=== PATIENT | male | born 1985 | race Caucasian/White ===

== ENCOUNTER 2017-11-03 12:02 | Observation (INO) | payer OTHER ==
[~2017-11-03] VITALS: Ht 170.2 cm; Wt 97.5 kg
[~2017-11-03 12:02] MED LIST: ACET325; AMOX500 PO; BACPOLTO30 TOP; BENADRYL25 MG PO; BENZ.5 PO; BENZ1 PO; BUTASPCAF PO; IBUP600 PO; IBUP800 PO; NAPR220; NAPR550 PO; OLAN5; OMEP20ER PO; PALI3TAB IM; PALI6TA; PROP60 PO; Pepcid20 MG PO; Prilosec20 MG PO; RISP1 PO; Robaxin500 MG PO; SLEEPING PILL; Tylenol325 MG PO; Ultram50 MG PO; Zofran Odt4 MG SL
[2017-11-03] MEDS ORDERED: GABA300 PO (13:36)
[2017-11-03] MEDS ORDERED: ACET325 PO (13:36)
[2017-11-03] MEDS ORDERED: Nicotine Gum2 MG BC (13:37)
[2017-11-03] MEDS ORDERED: Senna8.6 MG PO (13:38)
[2017-11-03] MEDS ORDERED: Hair, Skin & N1 EACH PO (13:38)
[2017-11-05] MEDS ORDERED: OXYC5 PO (12:36)
[2017-11-05] MEDS ORDERED: KETO10 PO (12:37)
== END 2017-11-05 13:14 | disposition home or self-care (01) ==
LOC: PRE IP 11-04 07:30 → SURS 11-04 07:31 → PRE IP 11-04 10:25 → SURS 11-04 10:25
PROVIDERS: Orthopaedic Surgery
PROC: 0RQK0ZZ Repair Left Shoulder Joint, Open Approach (ICD-10-PCS; principal; 2017-11-04 12:30)
DX: M25.812 Other specified joint disorders, left shoulder (principal); F17.200 Nicotine dependence, unspecified, uncomplicated; Z79.899 Other long term (current) drug therapy
CPT/HCPCS: C1713; G0008; G0378; J0171; J0690; J0735; J1100; J1170; J1885; J2250; J2270; J2370; J2405; J2710; J2765; J2795; J3010; J7120

== ENCOUNTER 2018-04-10 20:00 | Emergency (ER) | payer OTHER ==
[~2018-04-10] VITALS: Ht 170.2 cm; Wt 102.1 kg
[~2018-04-10 20:00] MED LIST changes: +ACET325 PO; +GABA300 PO; +Hair, Skin & N1 EACH PO; +KETO10 PO; +Nicotine Gum2 MG BC; +OXYC5 PO; +Senna8.6 MG PO
[2018-04-10] MEDS ORDERED: HYDHCL25 PO (22:34)
== END 2018-04-10 22:45 | disposition home or self-care (01) ==
LOC: ER 20:00
DX: S16.1XXA Strain of muscle, fascia and tendon at neck level, initial encounter (principal); F41.0 Panic disorder [episodic paroxysmal anxiety]; F20.9 Schizophrenia, unspecified; F17.200 Nicotine dependence, unspecified, uncomplicated; Z79.899 Other long term (current) drug therapy; X58.XXXA Exposure to other specified factors, initial encounter
CPT/HCPCS: 99283

== ENCOUNTER 2018-12-21 06:59 | Emergency (ER) | payer OTHER ==
[~2018-12-21] VITALS: Ht 167.6 cm; Wt 126.1 kg
[~2018-12-21 06:59] MED LIST changes: +HYDHCL25 PO
[2018-12-21] MEDS ORDERED: METCAR500 PO (07:21)
[2018-12-21] MEDS ORDERED: Tylenol325 MG PO (08:11)
== END 2018-12-21 08:16 | disposition home or self-care (01) ==
LOC: ER 06:59
DX: R07.81 Pleurodynia (principal); F41.0 Panic disorder [episodic paroxysmal anxiety]; F20.9 Schizophrenia, unspecified; F17.210 Nicotine dependence, cigarettes, uncomplicated; Z79.899 Other long term (current) drug therapy
CPT/HCPCS: 71046; 99283-25

== ENCOUNTER 2019-06-26 17:00 | Emergency (ER) | payer OTHER ==
[~2019-06-26] VITALS: Ht 167.6 cm; Wt 104.3 kg
[~2019-06-26 17:00] MED LIST changes: +METCAR500 PO
[2019-06-26] MEDS ORDERED: Benztropine Mesy1 MG PO (17:41)
[2019-06-26] MEDS ORDERED: INVEGA SUS234 MG/1.5 IM (17:42)
== END 2019-06-26 17:45 | disposition home or self-care (01) ==
LOC: ER 17:00
DX: M54.32 Sciatica, left side (principal); F20.9 Schizophrenia, unspecified; F17.210 Nicotine dependence, cigarettes, uncomplicated
CPT/HCPCS: 72170; 99283-25

== ENCOUNTER 2020-03-30 20:41 | Emergency (ER) | payer OTHER ==
[~2020-03-30 20:41] MED LIST changes: +Benztropine Mesy1 MG PO; +INVEGA SUS234 MG/1.5 IM
== END 2020-03-30 21:12 | disposition home or self-care (01) ==
DX: F14.90 Cocaine use, unspecified, uncomplicated (principal); G89.29 Other chronic pain; M54.2 Cervicalgia; F41.0 Panic disorder [episodic paroxysmal anxiety]; F20.9 Schizophrenia, unspecified; F17.200 Nicotine dependence, unspecified, uncomplicated; Z79.899 Other long term (current) drug therapy

== ENCOUNTER 2020-06-20 09:07 | Inpatient (IN) | payer OTHER ==
[~2020-06-20] VITALS: Ht 167.6 cm; Wt 93.0 kg
[~2020-06-20 09:07] MED LIST changes: +ARISTADA IM; +Methocarbamol500 MG; +PROPRANOLOL HCL80 MG PO
[2020-06-20 10:08] LABS: BASOPHILS ABSOLUTE AUTO 0.11 K/mm3 (0.00-0.23); BASOPHILS PERCENT AUTO 1 % (0-2); EOSINOPHILS ABSOLUTE AUTO 0.15 K/mm3 (0.00-0.68); EOSINOPHILS PERCENT AUTO 1 % (0-6); IMMATURE GRAN ABSOLUTE AUTO 0.07 K/mm3 (0.00-0.10); IMMATURE GRAN PERCENT AUTO 1 % (0-1); LYMPHOCYTES ABSOLUTE AUTO 3.25 K/mm3 (0.84-5.20); LYMPHOCYTES PERCENT AUTO 24 % (21-46); MONOCYTES ABSOLUTE AUTO 1.46 K/mm3 (0.16-1.47); MONOCYTES PERCENT AUTO 11 % (4-13); Mean Corpuscular HGB 31.4 pg (26.0-34.0); Mean Corpuscular HGB Conc 33.3 g/dL (31.5-36.5); Mean Corpuscular Volume 94 fL (80-100); Mean Platelet Volume 12.3 fL (9.1-12.4); NEUTROPHILS ABSOLUTE AUTO 8.63 K/mm3 (1.96-9.15); NEUTROPHILS PERCENT AUTO 63 % (41-73); Platelet Count 193 K/mm3 (150-400); RDW Standard Deviation 45.2 fL (35.1-46.3); Red Blood Cell Count 4.77 M/mm3 (4.30-5.90); White Blood Cell Count 13.67 K/mm3 (4.00-11.30)
[2020-06-20 10:20] LABS: Anion Gap 5 mmol/L (6-16); Blood Urea Nitrogen 6 mg/dL (8-24); CO2, Blood 28 mmol/L (21-32); Calcium, Blood 9.7 mg/dL (8.5-10.1); Chloride, Blood 105 mmol/L (98-108); Creatinine, Blood 0.86 mg/dL (0.60-1.20); Glomerular Filtration Rate >60 (60-); Glucose, Blood 95 mg/dL (70-99); Potassium, Blood 3.1 mmol/L (3.5-5.5); Sodium, Blood 138 mmol/L (136-145)
[2020-06-20] MEDS ORDERED: ARISTADA IM (11:46)
--- NOTE | 2020-06-20 16:58 | NUR ---
SHIFT SUMMARY- PT ARRIVED THIS AFTERNOON FROM ED. HE WAS ORIENTED TO THE ROOM. IV FLUIDS RUNNING. DR. LYNN, OPHTHALMOLOGY, CAME AND SAW THE PT. PT IS RECIEVING IV ANTIBIOTICS FOR CELLULITITS OF THE EYELID.
--- NOTE | 2020-06-20 19:34 | NUR ---
PATIENT HAVING INCREASED AGITATION. THROWING ITEMS IN ROOM. CHARGE NURSE REPORTS WILL CALL SECURITY. PATIENT WANTS TO LEAVE AMA. WANTS TO GO OUTSIDE TO SMOKE. PATIENT TOLD HE IS NOT MEDICALLY STABLE TO LEAVE WITH INCREASED BLOOD PRESSURE, 175/122 REPORTED FROM DAY RN. LR INFUSING AT 100 mL/HR.
--- NOTE | 2020-06-20 19:43 | NUR ---
PT HAD ELEVATED BP, STILL ELEVATED AFTER SCHEDULED ORAL MEDICATIONS, GAVE PRN HYDRALIZINE WITH LITTLE EFFECT CALLED DR. BERRY, OBTAINED ONE TIME DOSE FOR AND ADDITIONAL 10 MG HYDRALIZENE. GAVE INJECTION AND PROVIDED REPORT TO ONCOMING SHIFT.
--- NOTE | 2020-06-20 19:58 | NUR ---
PATIENT REPORTS HE IS LEAVING AMA. SECURITY NOTIFIED TO ESCORT OUT. PATIENT'S AMA FORM REVIEWED WITH HIM FOR RISKS AND BENIFITS. PATIENT ACCEPTS RISKS AND SIGNED FORM. CHARGE NURSE NOTIFIED ABOUT AMA. PIV REMOVED. PERSONAL BELONGINGS TAKEN. LAST BLOOD PRESSURE 181/121 UP FROM 175/122. TEMP: 98.4, PULSE: 99, RESP: 18, BP: 181/121, O2: 98% RA. SECURITY ESCORTED PATIENT OUTSIDE.
[2020-06-20 20:12] LABS: U Amphetamine Screen Not Detected; U Barbituate Screen Not Detected; U Benzodiazapine Screen Not Detected; U Buprenorphine Screen Not Detected; U Cannabinoids Screen Not Detected; U Cocaine Screen Not Detected; U Methadone Screen Not Detected; U Methamphetamine Screen Not Detected; U Opiates Screen Not Detected; U Oxycodone Screen Not Detected; U Phencyclidine Screen Not Detected; U Propoxyphene Screen Not Detected
[2020-06-20] MEDS ORDERED: Bactrim Ds Tab1 EACH PO (22:13)
== END 2020-06-20 20:15 | disposition left against medical advice (07) | DRG 872 ==
LOC: ER 09:07 → MEDS 11:26
PROVIDERS: Nurse Practitioner Acute Care; Physician Assistant; ADMIT Internal Medicine
DX: A41.9 Sepsis, unspecified organism (principal); L03.213 Periorbital cellulitis; F20.0 Paranoid schizophrenia; F41.0 Panic disorder [episodic paroxysmal anxiety]; I10 Essential (primary) hypertension; I16.0 Hypertensive urgency; E87.6 Hypokalemia; H00.034 Abscess of left upper eyelid; F17.210 Nicotine dependence, cigarettes, uncomplicated
CPT/HCPCS: 36415; 70481; 80048; 83605; 83735; 85025; 87040; 96365; 96375; 99284-25; A9270; J0295; J0360; J1650; J3370; J7030; J7050; J7120; Q9967

== ENCOUNTER 2020-07-12 04:28 | Emergency (ER) | payer OTHER ==
[~2020-07-12] VITALS: Ht 172.7 cm; Wt 86.9 kg
[~2020-07-12 04:28] MED LIST changes: +Bactrim Ds Tab1 EACH PO
[2020-07-13] MEDS ORDERED: ARISTADA IM (18:41)
[2020-07-13] MEDS ORDERED: SEROQUEL100 MG PO (18:41)
[2020-07-13] MEDS ORDERED: IBU800 M1 PO (18:41)
--- NOTE | 2020-07-14 18:42 | NUR ---
SHIFT SUMMARY. 1612 PT ADMITTED TO MEDICAL FLOOR VIA GURNEY. PT DIFFICULT TO ARROUSE SINCE ADMISSION, WAS ABLE TO ARROUSE PT ENOUGH FOR HIM TO TRANSFER TO BED. VSS. NO S/SX OF DISTRESS OR DISCOMFORT. CONTINUES WITH NS WITH K IV.
--- NOTE | 2020-07-14 19:15 | NUR ---
ASSUMED CARE. PIPPA IS FAST ASLEEP, HAS BEEN SINCE HE ARRIVED TO THE FLOOR. HE DOES AWAKE TO CALLING HIS NAME AND SHAKING. HE OPENED HIS EYES FOR A FEW SECONDS THEN BACK TO SLEEP. NOT ABLE TO DO A FULL ASSESSMENT DUE TO HIS SLEEPING. WAS ABLE TO LISTEN TO LUNGS AND HR. ASSESS PART OF SKIN. ALL IS WNL. IV FLUIDS ARE INFUSING. WILL CONTINUE TO MONITOR THROUGHOUT THE SHIFT. CALL LIGHT IS IN REACH.
[2020-07-15] MEDS ORDERED: IBUP600 PO (13:04)
[2020-07-15] MEDS ORDERED: OXYC5 PO (13:05)
== END 2020-07-12 06:28 | disposition home or self-care (01) ==
LOC: ER 04:28 → MEDS 06:28 → ER 06:28 → MEDS 07-14 16:15 → ER 07-14 16:15 → MEDS 07-14 16:20 → UNDODEPER 07-15 01:18
DX: S86.812A Strain of other muscle(s) and tendon(s) at lower leg level, left leg, initial encounter (principal); F17.210 Nicotine dependence, cigarettes, uncomplicated; Z79.899 Other long term (current) drug therapy; W17.89XA Other fall from one level to another, initial encounter; Y93.39 Activity, other involving climbing, rappelling and jumping off
CPT/HCPCS: 73560-LT; 99283-25

== ENCOUNTER 2020-07-13 17:01 | Emergency (ER) | payer OTHER ==
[~2020-07-13] VITALS: Ht 167.6 cm; Wt 81.7 kg
[2020-07-13] MEDS ORDERED: IBU800 M1 PO (18:41)
[2020-07-13] MEDS ORDERED: ARISTADA IM (18:41)
[2020-07-13] MEDS ORDERED: SEROQUEL100 MG PO (18:41)
[2020-07-15] MEDS ORDERED: IBUP600 PO (13:04)
[2020-07-15] MEDS ORDERED: OXYC5 PO (13:05)
== END 2020-07-13 18:32 | disposition home or self-care (01) ==
LOC: ER 17:01
DX: S83.92XD Sprain of unspecified site of left knee, subsequent encounter (principal); F41.0 Panic disorder [episodic paroxysmal anxiety]; F20.9 Schizophrenia, unspecified; Z79.899 Other long term (current) drug therapy; W17.89XD Other fall from one level to another, subsequent encounter
CPT/HCPCS: 99283-25

== ENCOUNTER 2020-07-13 22:23 | Emergency (ER) | payer OTHER ==
[~2020-07-13] VITALS: Ht 167.6 cm; Wt 90.7 kg
[~2020-07-13 22:23] MED LIST changes: +IBU800 M1 PO; +SEROQUEL100 MG PO
[2020-07-15] MEDS ORDERED: IBUP600 PO (13:04)
[2020-07-15] MEDS ORDERED: OXYC5 PO (13:05)
== END 2020-07-13 23:50 | disposition home or self-care (01) ==
LOC: ER 22:23
DX: F20.9 Schizophrenia, unspecified (principal); F41.0 Panic disorder [episodic paroxysmal anxiety]; I10 Essential (primary) hypertension; Z79.899 Other long term (current) drug therapy
CPT/HCPCS: 96372; 99285-25

== ENCOUNTER 2020-07-15 18:58 | Emergency (ER) | payer OTHER ==
[~2020-07-15] VITALS: Ht 167.6 cm; Wt 90.7 kg
[2020-07-16] MEDS ORDERED: ALBU90OI INH (21:46)
== END 2020-07-15 21:00 | disposition home or self-care (01) ==
LOC: ER 18:58
DX: S83.92XD Sprain of unspecified site of left knee, subsequent encounter (principal); F41.0 Panic disorder [episodic paroxysmal anxiety]; F20.9 Schizophrenia, unspecified; F17.210 Nicotine dependence, cigarettes, uncomplicated; Z79.899 Other long term (current) drug therapy; X58.XXXD Exposure to other specified factors, subsequent encounter
CPT/HCPCS: 99283

== ENCOUNTER 2020-07-16 00:05 | Emergency (ER) | payer OTHER ==
[~2020-07-16] VITALS: Ht 167.6 cm; Wt 90.7 kg
[2020-07-16] MEDS ORDERED: ALBU90OI INH (21:46)
== END 2020-07-16 00:58 | disposition home or self-care (01) ==
LOC: ER 00:05
DX: M25.562 Pain in left knee (principal); F17.210 Nicotine dependence, cigarettes, uncomplicated; Z79.899 Other long term (current) drug therapy
CPT/HCPCS: 99282-25

== ENCOUNTER 2020-07-16 03:27 | Emergency (ER) | payer OTHER ==
[~2020-07-16] VITALS: Ht 172.7 cm; Wt 72.6 kg
[2020-07-16] MEDS ORDERED: ALBU90OI INH (21:46)
== END 2020-07-16 03:40 | disposition home or self-care (01) ==
LOC: ER 03:27
DX: Z00.00 Encounter for general adult medical examination without abnormal findings (principal); F20.9 Schizophrenia, unspecified; F41.0 Panic disorder [episodic paroxysmal anxiety]; F17.210 Nicotine dependence, cigarettes, uncomplicated; Z79.899 Other long term (current) drug therapy
CPT/HCPCS: 99282

== ENCOUNTER 2020-07-16 21:32 | Emergency (ER) | payer OTHER ==
[~2020-07-16] VITALS: Ht 167.6 cm; Wt 81.7 kg
[2020-07-16] MEDS ORDERED: ALBU90OI INH (21:46)
== END 2020-07-16 23:27 | disposition home or self-care (01) ==
LOC: ER 21:32
DX: F29 Unspecified psychosis not due to a substance or known physiological condition (principal); F20.0 Paranoid schizophrenia; F41.0 Panic disorder [episodic paroxysmal anxiety]; I10 Essential (primary) hypertension; F17.210 Nicotine dependence, cigarettes, uncomplicated; Z79.899 Other long term (current) drug therapy
CPT/HCPCS: 99284

== ENCOUNTER 2020-08-17 11:02 | Emergency (ER) | payer OTHER ==
[~2020-08-17] VITALS: Ht 170.2 cm; Wt 74.8 kg
[~2020-08-17 11:02] MED LIST changes: +ALBU90OI INH
[2020-08-17] MEDS ORDERED: PROPRANOLOL HCL80 MG PO (13:29)
[2020-08-17] MEDS ORDERED: KETO10 PO (22:19)
[2020-08-18] MEDS ORDERED: QUETIAPINE FUM100 M1 PO (02:42)
[2020-08-18] MEDS ORDERED: ARISTADA IM (02:42)
[2020-08-18] MEDS ORDERED: Methocarbamol500 MG PO (02:42)
== END 2020-08-17 13:37 | disposition home or self-care (01) ==
LOC: ER 11:02
DX: F29 Unspecified psychosis not due to a substance or known physiological condition (principal); I10 Essential (primary) hypertension; F15.10 Other stimulant abuse, uncomplicated; M25.562 Pain in left knee; G89.29 Other chronic pain; F17.210 Nicotine dependence, cigarettes, uncomplicated; Z91.14 Patient's other noncompliance with medication regimen; Z86.59 Personal history of other mental and behavioral disorders; Z79.899 Other long term (current) drug therapy
CPT/HCPCS: 99283

== ENCOUNTER 2020-08-17 21:51 | Emergency (ER) | payer OTHER ==
[~2020-08-17] VITALS: Ht 170.2 cm; Wt 81.7 kg
[2020-08-17] MEDS ORDERED: KETO10 PO (22:19)
[2020-08-18] MEDS ORDERED: ARISTADA IM (02:42)
[2020-08-18] MEDS ORDERED: Methocarbamol500 MG PO (02:42)
[2020-08-18] MEDS ORDERED: QUETIAPINE FUM100 M1 PO (02:42)
== END 2020-08-17 22:39 | disposition home or self-care (01) ==
LOC: ER 21:51
DX: S83.8X2A Sprain of other specified parts of left knee, initial encounter (principal); F17.210 Nicotine dependence, cigarettes, uncomplicated; Z79.899 Other long term (current) drug therapy; X58.XXXA Exposure to other specified factors, initial encounter
CPT/HCPCS: 96372-59; 99283-25; J1885

== ENCOUNTER 2020-08-18 02:33 | Emergency (ER) | payer OTHER ==
[~2020-08-18] VITALS: Ht 170.2 cm; Wt 81.7 kg
[2020-08-18] MEDS ORDERED: ARISTADA IM (02:42)
[2020-08-18] MEDS ORDERED: QUETIAPINE FUM100 M1 PO (02:42)
[2020-08-18] MEDS ORDERED: Methocarbamol500 MG PO (02:42)
== END 2020-08-18 02:56 | disposition home or self-care (01) ==
LOC: ER 02:33
DX: G89.29 Other chronic pain (principal); M25.562 Pain in left knee; F41.0 Panic disorder [episodic paroxysmal anxiety]; F20.9 Schizophrenia, unspecified; F17.210 Nicotine dependence, cigarettes, uncomplicated; Z79.899 Other long term (current) drug therapy
CPT/HCPCS: 99283

== ENCOUNTER 2020-09-15 20:13 | Emergency (ER) | payer OTHER ==
[~2020-09-15] VITALS: Ht 167.6 cm; Wt 81.7 kg
[~2020-09-15 20:13] MED LIST changes: +Methocarbamol500 MG PO; +QUETIAPINE FUM100 M1 PO
[2020-09-15] MEDS ORDERED: CEPH500 PO (22:45)
== END 2020-09-15 22:54 | disposition home or self-care (01) ==
LOC: ER 20:13
DX: L03.116 Cellulitis of left lower limb (principal); F20.0 Paranoid schizophrenia; F41.0 Panic disorder [episodic paroxysmal anxiety]; I10 Essential (primary) hypertension; F17.210 Nicotine dependence, cigarettes, uncomplicated; Z79.899 Other long term (current) drug therapy
CPT/HCPCS: 99282

== ENCOUNTER 2020-09-17 22:54 | Emergency (ER) | payer OTHER ==
[~2020-09-17] VITALS: Ht 167.6 cm; Wt 81.7 kg
[~2020-09-17 22:54] MED LIST changes: +CEPH500 PO
== END 2020-09-17 23:30 | disposition home or self-care (01) ==
LOC: ER 22:54
DX: L03.116 Cellulitis of left lower limb (principal); F20.0 Paranoid schizophrenia; F41.0 Panic disorder [episodic paroxysmal anxiety]; F41.9 Anxiety disorder, unspecified; I10 Essential (primary) hypertension; F17.210 Nicotine dependence, cigarettes, uncomplicated; Z79.899 Other long term (current) drug therapy
CPT/HCPCS: 99282

== ENCOUNTER 2020-09-18 10:52 | Emergency (ER) | payer OTHER ==
[~2020-09-18] VITALS: Ht 175.3 cm; Wt 68.0 kg
== END 2020-09-18 12:13 | disposition left against medical advice (07) ==
LOC: ER 10:52
DX: Z53.21 Procedure and treatment not carried out due to patient leaving prior to being seen by health care provider (principal)

== ENCOUNTER 2020-09-19 02:05 | Emergency (ER) | payer OTHER ==
[~2020-09-19] VITALS: Ht 167.6 cm; Wt 81.7 kg
== END 2020-09-19 02:36 | disposition home or self-care (01) ==
LOC: ER 02:05
DX: F15.10 Other stimulant abuse, uncomplicated (principal); F41.0 Panic disorder [episodic paroxysmal anxiety]; F20.9 Schizophrenia, unspecified; F17.200 Nicotine dependence, unspecified, uncomplicated; Z79.899 Other long term (current) drug therapy
CPT/HCPCS: 99284

== ENCOUNTER 2020-10-05 22:49 | Emergency (ER) | payer OTHER ==
[~2020-10-05] VITALS: Ht 170.2 cm; Wt 81.7 kg
== END 2020-10-05 23:17 | disposition home or self-care (01) ==
LOC: ER 22:49
DX: F15.10 Other stimulant abuse, uncomplicated (principal); F20.0 Paranoid schizophrenia; F41.0 Panic disorder [episodic paroxysmal anxiety]; F41.9 Anxiety disorder, unspecified; I10 Essential (primary) hypertension; F17.210 Nicotine dependence, cigarettes, uncomplicated; Z76.0 Encounter for issue of repeat prescription; Z79.899 Other long term (current) drug therapy
CPT/HCPCS: 99284

== ENCOUNTER 2020-10-07 19:52 | Emergency (ER) | payer OTHER ==
[~2020-10-07] VITALS: Ht 170.2 cm; Wt 81.7 kg
== END 2020-10-07 23:21 | disposition home or self-care (01) ==
LOC: ER 19:52
DX: F20.9 Schizophrenia, unspecified (principal); I10 Essential (primary) hypertension; F41.0 Panic disorder [episodic paroxysmal anxiety]; F41.9 Anxiety disorder, unspecified; F17.210 Nicotine dependence, cigarettes, uncomplicated; Z79.899 Other long term (current) drug therapy
CPT/HCPCS: 99283

== ENCOUNTER 2020-10-13 00:37 | Emergency (ER) | payer OTHER ==
[~2020-10-13] VITALS: Ht 167.6 cm; Wt 77.1 kg
== END 2020-10-13 00:51 | disposition home or self-care (01) ==
LOC: ER 00:37
DX: F15.10 Other stimulant abuse, uncomplicated (principal); F41.0 Panic disorder [episodic paroxysmal anxiety]; F20.9 Schizophrenia, unspecified; F17.290 Nicotine dependence, other tobacco product, uncomplicated; Z79.899 Other long term (current) drug therapy
CPT/HCPCS: 99284

== ENCOUNTER 2020-10-13 09:13 | Emergency (ER) | payer OTHER ==
[~2020-10-13] VITALS: Ht 167.6 cm; Wt 79.4 kg
[2020-10-13 10:04] LABS: BASOPHILS ABSOLUTE AUTO 0.08 K/mm3 (0.00-0.23); BASOPHILS PERCENT AUTO 1 % (0-2); EOSINOPHILS ABSOLUTE AUTO 0.06 K/mm3 (0.00-0.68); EOSINOPHILS PERCENT AUTO 1 % (0-6); Hematocrit 43.6 % (37.0-53.0); IMMATURE GRAN ABSOLUTE AUTO 0.03 K/mm3 (0.00-0.10); IMMATURE GRAN PERCENT AUTO 0 % (0-1); LYMPHOCYTES ABSOLUTE AUTO 3.51 K/mm3 (0.84-5.20); LYMPHOCYTES PERCENT AUTO 34 % (21-46); MONOCYTES ABSOLUTE AUTO 0.98 K/mm3 (0.16-1.47); MONOCYTES PERCENT AUTO 10 % (4-13); Mean Corpuscular HGB 30.4 pg (26.0-34.0); Mean Corpuscular HGB Conc 32.1 g/dL (31.5-36.5); Mean Corpuscular Volume 95 fL (80-100); Mean Platelet Volume 12.2 fL (9.1-12.4); NEUTROPHILS ABSOLUTE AUTO 5.66 K/mm3 (1.96-9.15); NEUTROPHILS PERCENT AUTO 55 % (41-73); Platelet Count 230 K/mm3 (150-400); RDW Coefficient Variation 13.6 % (11.7-14.2); RDW Standard Deviation 47.8 fL (35.1-46.3); White Blood Cell Count 10.32 K/mm3 (4.00-11.30)
[2020-10-13 10:28] LABS: Alanine Aminotransfer (ALT/SGP 41 U/L (12-78); Albumin/Globulin Ratio 1.1 (0.8-1.8); Alk Phos 120 U/L (50-136); Anion Gap 4 mmol/L (6-16); Aspartate Aminotrans (AST/SGOT 30 U/L (12-37); Bilirubin, Total 0.5 mg/dL (0.1-1.0); Blood Urea Nitrogen 10 mg/dL (8-24); Bun/Creatinine Ratio 10.6 (12.0-20.0); CO2, Blood 32 mmol/L (21-32); Calcium, Blood 9.4 mg/dL (8.5-10.1); Chloride, Blood 104 mmol/L (98-108); Creatinine, Blood 0.94 mg/dL (0.60-1.20); Globulin, Blood 3.7 g/dL (2.2-4.0); Glomerular Filtration Rate >60 (60-); Glucose, Blood 101 mg/dL (70-99); Sodium, Blood 140 mmol/L (136-145); Total Protein, Blood 7.7 g/dL (6.4-8.2)
== END 2020-10-13 11:56 | disposition home or self-care (01) ==
LOC: ER 09:13
PROVIDERS: Emergency Medicine
DX: E87.6 Hypokalemia (principal); F22 Delusional disorders; F41.9 Anxiety disorder, unspecified; F41.0 Panic disorder [episodic paroxysmal anxiety]; I10 Essential (primary) hypertension; F17.210 Nicotine dependence, cigarettes, uncomplicated; Z79.899 Other long term (current) drug therapy
CPT/HCPCS: 80053; 85025; 99285; A9270

== ENCOUNTER 2020-10-13 17:43 | Emergency (ER) | payer OTHER | END 2020-10-13 18:43 | disposition left against medical advice (07) | LOC: ER 17:43 | DX: Z53.21 Procedure and treatment not carried out due to patient leaving prior to being seen by health care provider (principal) ==

== ENCOUNTER 2020-10-13 19:08 | Emergency (ER) | payer OTHER ==
[~2020-10-13] VITALS: Ht 162.6 cm; Wt 72.6 kg
== END 2020-10-13 19:55 | disposition home or self-care (01) ==
LOC: ER 19:08
DX: F15.10 Other stimulant abuse, uncomplicated (principal); F29 Unspecified psychosis not due to a substance or known physiological condition; F20.0 Paranoid schizophrenia; F41.0 Panic disorder [episodic paroxysmal anxiety]; F41.9 Anxiety disorder, unspecified; I10 Essential (primary) hypertension; F17.200 Nicotine dependence, unspecified, uncomplicated; Z79.899 Other long term (current) drug therapy
CPT/HCPCS: 99284

== ENCOUNTER 2020-10-20 19:56 | Emergency (ER) | payer OTHER ==
[~2020-10-20] VITALS: Ht 167.6 cm; Wt 81.7 kg
== END 2020-10-20 21:23 | disposition home or self-care (01) ==
LOC: ER 19:56
DX: Z00.00 Encounter for general adult medical examination without abnormal findings (principal); F41.0 Panic disorder [episodic paroxysmal anxiety]; F41.9 Anxiety disorder, unspecified; I10 Essential (primary) hypertension; Z79.899 Other long term (current) drug therapy
CPT/HCPCS: 99283

== ENCOUNTER 2020-10-27 00:59 | Emergency (ER) | payer OTHER ==
[~2020-10-27] VITALS: Ht 170.2 cm; Wt 81.2 kg
== END 2020-10-27 01:26 | disposition home or self-care (01) ==
LOC: ER 00:59
DX: Z00.00 Encounter for general adult medical examination without abnormal findings (principal); F20.0 Paranoid schizophrenia; F41.0 Panic disorder [episodic paroxysmal anxiety]; I10 Essential (primary) hypertension; F17.200 Nicotine dependence, unspecified, uncomplicated; Z79.899 Other long term (current) drug therapy
CPT/HCPCS: 99284

== ENCOUNTER 2020-11-16 19:10 | Emergency (ER) | payer OTHER ==
[~2020-11-16] VITALS: Ht 167.6 cm; Wt 81.7 kg
== END 2020-11-16 20:02 | disposition home or self-care (01) ==
LOC: ER 19:10
DX: R44.3 Hallucinations, unspecified (principal); F41.0 Panic disorder [episodic paroxysmal anxiety]; F17.210 Nicotine dependence, cigarettes, uncomplicated; Z79.899 Other long term (current) drug therapy
CPT/HCPCS: 99284

== ENCOUNTER 2020-12-03 22:03 | Emergency (ER) | payer OTHER ==
[~2020-12-03] VITALS: Ht 167.6 cm; Wt 79.4 kg
[2020-12-03] MEDS ORDERED: OLANZAPINE PO (22:16)
[2020-12-03] MEDS ORDERED: Haldol 5 mg Tab5 MG (22:16)
== END 2020-12-03 22:24 | disposition home or self-care (01) ==
LOC: ER 22:03
DX: Z00.00 Encounter for general adult medical examination without abnormal findings (principal); F20.0 Paranoid schizophrenia; F17.200 Nicotine dependence, unspecified, uncomplicated; Z91.14 Patient's other noncompliance with medication regimen; Z79.899 Other long term (current) drug therapy
CPT/HCPCS: 99283

== ENCOUNTER 2020-12-28 13:44 | Emergency (ER) | payer OTHER ==
[~2020-12-28] VITALS: Ht 170.2 cm; Wt 77.1 kg
[~2020-12-28 13:44] MED LIST changes: +Haldol 5 mg Tab5 MG; +OLANZAPINE PO
== END 2020-12-28 14:54 | disposition home or self-care (01) ==
LOC: ER 13:44
DX: F15.10 Other stimulant abuse, uncomplicated (principal); R44.2 Other hallucinations; R05 Cough; F17.200 Nicotine dependence, unspecified, uncomplicated; Z79.899 Other long term (current) drug therapy
CPT/HCPCS: 99284

== ENCOUNTER 2021-01-09 01:18 | Emergency (ER) | payer OTHER ==
[~2021-01-09] VITALS: Ht 170.2 cm; Wt 68.0 kg
== END 2021-01-09 04:49 | disposition home or self-care (01) ==
LOC: ER 01:18
DX: F15.10 Other stimulant abuse, uncomplicated (principal); I10 Essential (primary) hypertension; F17.200 Nicotine dependence, unspecified, uncomplicated; Z79.899 Other long term (current) drug therapy
CPT/HCPCS: 99282

== ENCOUNTER 2021-01-10 18:53 | Emergency (ER) | payer OTHER ==
[~2021-01-10] VITALS: Ht 165.1 cm; Wt 72.6 kg
== END 2021-01-10 20:52 | disposition home or self-care (01) ==
LOC: ER 18:53
DX: F20.9 Schizophrenia, unspecified (principal); F15.10 Other stimulant abuse, uncomplicated; I10 Essential (primary) hypertension; F17.200 Nicotine dependence, unspecified, uncomplicated; Z79.899 Other long term (current) drug therapy
CPT/HCPCS: 99282

== ENCOUNTER 2021-01-20 03:11 | Emergency (ER) | payer OTHER ==
[~2021-01-20] VITALS: Ht 170.2 cm; Wt 68.0 kg
== END 2021-01-20 05:52 | disposition home or self-care (01) ==
LOC: ER 03:11
DX: S61.214A Laceration without foreign body of right ring finger without damage to nail, initial encounter (principal); I10 Essential (primary) hypertension; F17.200 Nicotine dependence, unspecified, uncomplicated; Z79.899 Other long term (current) drug therapy; W45.8XXA Other foreign body or object entering through skin, initial encounter
CPT/HCPCS: 12002; 99283-25

== ENCOUNTER 2021-01-25 14:34 | Emergency (ER) | payer OTHER ==
[~2021-01-25] VITALS: Ht 177.8 cm; Wt 68.0 kg
== END 2021-01-25 17:20 | disposition left against medical advice (07) ==
LOC: ER 14:34
DX: F20.9 Schizophrenia, unspecified (principal); F15.959 Other stimulant use, unspecified with stimulant-induced psychotic disorder, unspecified; Z79.899 Other long term (current) drug therapy
CPT/HCPCS: 99283

== ENCOUNTER 2021-01-25 17:49 | Emergency (ER) | payer OTHER ==
[~2021-01-25] VITALS: Ht 177.8 cm; Wt 68.0 kg
== END 2021-01-25 18:35 | disposition home or self-care (01) ==
LOC: ER 17:49
DX: S60.412A Abrasion of right middle finger, initial encounter (principal); L08.9 Local infection of the skin and subcutaneous tissue, unspecified; F15.10 Other stimulant abuse, uncomplicated; F17.210 Nicotine dependence, cigarettes, uncomplicated; Z79.899 Other long term (current) drug therapy; X58.XXXA Exposure to other specified factors, initial encounter
CPT/HCPCS: 99282

== ENCOUNTER 2021-01-28 14:51 | Emergency (ER) | payer OTHER ==
[~2021-01-28] VITALS: Ht 172.7 cm; Wt 74.8 kg
== END 2021-01-28 15:25 | disposition home or self-care (01) ==
LOC: ER 14:51
DX: F20.9 Schizophrenia, unspecified (principal); F15.959 Other stimulant use, unspecified with stimulant-induced psychotic disorder, unspecified; F17.200 Nicotine dependence, unspecified, uncomplicated; I10 Essential (primary) hypertension; Z79.899 Other long term (current) drug therapy
CPT/HCPCS: 99283

== ENCOUNTER 2021-02-16 16:22 | Emergency (ER) | payer OTHER ==
[~2021-02-16] VITALS: Ht 172.7 cm; Wt 72.6 kg
== END 2021-02-16 16:53 | disposition home or self-care (01) ==
LOC: ER 16:22
DX: F15.10 Other stimulant abuse, uncomplicated (principal); F17.290 Nicotine dependence, other tobacco product, uncomplicated; Z79.899 Other long term (current) drug therapy
CPT/HCPCS: 99285

== ENCOUNTER 2021-06-05 01:08 | Emergency (ER) | payer SELFPAY ==
[~2021-06-05] VITALS: Ht 157.5 cm; Wt 59.0 kg
== END 2021-06-05 02:10 | disposition home or self-care (01) ==
LOC: ER 01:08
DX: M79.18 Myalgia, other site (principal); I10 Essential (primary) hypertension; F17.200 Nicotine dependence, unspecified, uncomplicated; Z59.0 Homelessness; Z79.899 Other long term (current) drug therapy
CPT/HCPCS: 99283

== ENCOUNTER 2021-07-01 16:22 | Emergency (ER) | payer OTHER | END 2021-07-01 16:57 | disposition left against medical advice (07) | LOC: ER 16:22 | DX: Z53.21 Procedure and treatment not carried out due to patient leaving prior to being seen by health care provider (principal) ==

== ENCOUNTER 2021-07-01 17:07 | Emergency (ER) | payer OTHER ==
[~2021-07-01] VITALS: Ht 167.6 cm; Wt 68.0 kg
== END 2021-07-01 18:07 | disposition home or self-care (01) ==
LOC: ER 17:07
DX: S40.211A Abrasion of right shoulder, initial encounter (principal); M25.511 Pain in right shoulder; X58.XXXA Exposure to other specified factors, initial encounter; F17.200 Nicotine dependence, unspecified, uncomplicated; Z59.0 Homelessness
CPT/HCPCS: 99283; A9270

== ENCOUNTER 2021-07-22 20:09 | Emergency (ER) | payer OTHER ==
[~2021-07-22] VITALS: Ht 170.2 cm; Wt 74.8 kg
== END 2021-07-22 20:50 | disposition home or self-care (01) ==
LOC: ER 20:09
DX: Z00.8 Encounter for other general examination (principal); I10 Essential (primary) hypertension; F17.200 Nicotine dependence, unspecified, uncomplicated; Z79.899 Other long term (current) drug therapy
CPT/HCPCS: 99282

== ENCOUNTER 2021-08-27 12:25 | Emergency (ER) | payer OTHER ==
[~2021-08-27] VITALS: Ht 175.3 cm; Wt 68.0 kg
[2021-08-27 13:14] LABS: BASOPHILS ABSOLUTE AUTO 0.06 K/mm3 (0.00-0.23); BASOPHILS PERCENT AUTO 1 % (0-2); EOSINOPHILS ABSOLUTE AUTO 0.03 K/mm3 (0.00-0.68); EOSINOPHILS PERCENT AUTO 0 % (0-6); Hematocrit 32.4 % (37.0-53.0); Hemoglobin 10.9 g/dL (13.5-17.5); IMMATURE GRAN ABSOLUTE AUTO 0.02 K/mm3 (0.00-0.10); IMMATURE GRAN PERCENT AUTO 0 % (0-1); LYMPHOCYTES ABSOLUTE AUTO 2.84 K/mm3 (0.84-5.20); LYMPHOCYTES PERCENT AUTO 34 % (21-46); MONOCYTES ABSOLUTE AUTO 0.89 K/mm3 (0.16-1.47); MONOCYTES PERCENT AUTO 11 % (4-13); Mean Corpuscular HGB 31.3 pg (26.0-34.0); Mean Corpuscular HGB Conc 33.6 g/dL (31.5-36.5); Mean Corpuscular Volume 93 fL (80-100); Mean Platelet Volume 11.2 fL (9.1-12.4); NEUTROPHILS ABSOLUTE AUTO 4.45 K/mm3 (1.96-9.15); NEUTROPHILS PERCENT AUTO 54 % (41-73); Platelet Count 305 K/mm3 (150-400); RDW Coefficient Variation 12.5 % (11.7-14.2); RDW Standard Deviation 42.9 fL (35.1-46.3); Red Blood Cell Count 3.48 M/mm3 (4.30-5.90); White Blood Cell Count 8.29 K/mm3 (4.00-11.30)
[2021-08-27 13:50] LABS: Alanine Aminotransfer (ALT/SGP 39 U/L (12-78); Albumin, Blood 2.6 g/dL (3.4-5.0); Albumin/Globulin Ratio 0.6 (0.8-1.8); Alk Phos 86 U/L (50-136); Anion Gap 5 mmol/L (6-16); Aspartate Aminotrans (AST/SGOT 37 U/L (12-37); Bilirubin, Total 0.2 mg/dL (0.1-1.0); Blood Urea Nitrogen 16 mg/dL (8-24); Bun/Creatinine Ratio 17.2 (12.0-20.0); CO2, Blood 29 mmol/L (21-32); Calcium, Blood 8.6 mg/dL (8.5-10.1); Chloride, Blood 109 mmol/L (98-108); Creatinine, Blood 0.93 mg/dL (0.60-1.20); Globulin, Blood 4.1 g/dL (2.2-4.0); Glomerular Filtration Rate >60 (60-); Glucose, Blood 133 mg/dL (70-99); Potassium, Blood 3.3 mmol/L (3.5-5.5); Sodium, Blood 143 mmol/L (136-145); Total Protein, Blood 6.7 g/dL (6.4-8.2)
== END 2021-08-27 14:06 | disposition left against medical advice (07) ==
LOC: ER 12:25
PROVIDERS: Emergency Medicine
DX: F20.9 Schizophrenia, unspecified (principal); Z53.21 Procedure and treatment not carried out due to patient leaving prior to being seen by health care provider; F17.200 Nicotine dependence, unspecified, uncomplicated; I10 Essential (primary) hypertension; Z79.899 Other long term (current) drug therapy
CPT/HCPCS: 80053; 85025; 99284; A9270

== ENCOUNTER 2021-09-16 02:32 | Emergency (ER) | payer OTHER ==
[~2021-09-16] VITALS: Ht 165.1 cm; Wt 63.5 kg
== END 2021-09-16 02:57 | disposition home or self-care (01) ==
LOC: ER 02:32
DX: F41.9 Anxiety disorder, unspecified (principal); F15.10 Other stimulant abuse, uncomplicated; I10 Essential (primary) hypertension; F17.200 Nicotine dependence, unspecified, uncomplicated
CPT/HCPCS: 99283

== ENCOUNTER 2022-02-04 21:47 | Emergency (ER) | payer OTHER ==
[~2022-02-04] VITALS: Ht 170.2 cm; Wt 83.9 kg
== END 2022-02-05 06:36 | disposition home or self-care (01) ==
LOC: ER 21:47
DX: T69.9XXA Effect of reduced temperature, unspecified, initial encounter (principal); M25.521 Pain in right elbow; R53.81 Other malaise; R53.83 Other fatigue; I10 Essential (primary) hypertension; F17.200 Nicotine dependence, unspecified, uncomplicated; F41.0 Panic disorder [episodic paroxysmal anxiety]
CPT/HCPCS: 99283

== ENCOUNTER 2022-12-22 22:26 | Emergency (ER) | payer OTHER ==
[~2022-12-22] VITALS: Ht 177.8 cm; Wt 81.7 kg
[~2022-12-22 22:26] MED LIST changes: +ALLERCLEAR10 MG PO; +INVEGA TRI IM; +MONT10T PO; +OLAN10 PO; +OLANZAPINE15 M1 PO; +POTCHL20ER PO; +PROAIR DIGIHAL90 MCG INH; +TELMISARTAN80 MG PO
== END 2022-12-22 22:47 | disposition home or self-care (01) ==
LOC: ER 22:26
DX: K13.70 Unspecified lesions of oral mucosa (principal); F15.10 Other stimulant abuse, uncomplicated; I10 Essential (primary) hypertension; F17.210 Nicotine dependence, cigarettes, uncomplicated; Z79.899 Other long term (current) drug therapy
CPT/HCPCS: 99283

== ENCOUNTER 2023-03-02 22:25 | Emergency (ER) | payer OTHER ==
[~2023-03-02] VITALS: Ht 167.6 cm; Wt 122.5 kg
[2023-03-02 22:55] VITALS: BP 149/119
== END 2023-03-02 23:07 | disposition home or self-care (01) ==
LOC: ER 22:25
DX: F15.10 Other stimulant abuse, uncomplicated (principal); F17.210 Nicotine dependence, cigarettes, uncomplicated; Z79.899 Other long term (current) drug therapy
CPT/HCPCS: 99282

== ENCOUNTER 2023-03-06 23:13 | Emergency (ER) | payer OTHER ==
[~2023-03-06] VITALS: Ht 167.6 cm; Wt 95.2 kg
[2023-03-06 23:30] VITALS: BP 168/109
== END 2023-03-06 23:44 | disposition home or self-care (01) ==
LOC: ER 23:13
DX: R00.0 Tachycardia, unspecified (principal); F17.210 Nicotine dependence, cigarettes, uncomplicated; Z79.899 Other long term (current) drug therapy
CPT/HCPCS: 99282; A9270

== ENCOUNTER 2023-03-20 08:11 | Emergency (ER) | payer OTHER ==
[~2023-03-20] VITALS: Ht 167.6 cm; Wt 122.5 kg
[2023-03-20 09:13] VITALS: BP 162/103
[2023-03-20] MEDS ORDERED: CEPH500 PO (10:20)
== END 2023-03-20 10:38 | disposition home or self-care (01) ==
LOC: ER 08:11
DX: F15.20 Other stimulant dependence, uncomplicated (principal); L03.115 Cellulitis of right lower limb; I10 Essential (primary) hypertension; F17.210 Nicotine dependence, cigarettes, uncomplicated; Z79.899 Other long term (current) drug therapy
CPT/HCPCS: 99284; A9270

== ENCOUNTER 2023-03-20 21:01 | Emergency (ER) | payer OTHER ==
[~2023-03-20] VITALS: Ht 172.7 cm; Wt 86.2 kg
[2023-03-20 22:21] VITALS: BP 122/86
== END 2023-03-20 22:31 | disposition home or self-care (01) ==
LOC: ER 21:01
DX: F15.10 Other stimulant abuse, uncomplicated (principal); I10 Essential (primary) hypertension; F17.200 Nicotine dependence, unspecified, uncomplicated; Z79.899 Other long term (current) drug therapy
CPT/HCPCS: 99283

== ENCOUNTER 2023-03-22 21:04 | Emergency (ER) | payer OTHER ==
[~2023-03-22] VITALS: Ht 170.2 cm; Wt 122.5 kg
[2023-03-22 21:19] VITALS: BP 149/94
== END 2023-03-22 22:20 | disposition home or self-care (01) ==
LOC: ER 21:04
DX: M25.562 Pain in left knee (principal); Z74.1 Need for assistance with personal care; Z79.899 Other long term (current) drug therapy; I10 Essential (primary) hypertension; F17.200 Nicotine dependence, unspecified, uncomplicated
CPT/HCPCS: 99282

== ENCOUNTER 2023-09-25 16:37 | Emergency (ER) | payer OTHER ==
[~2023-09-25] VITALS: Ht 167.6 cm; Wt 113.4 kg
[~2023-09-25 16:37] MED LIST changes: +POTA20PAC PO
[2023-09-25 16:47] VITALS: BP 197/110
[2023-09-25 18:35] LABS: Chloride (POC) 99 mmol/L (98-108); Glucose (ISTAT POC) 93 mg/dL (70-99); Hemoglobin (POC) 15.6 g/dL (13.5-17.5); Potassium (POC) 3.3 mmol/L (3.5-5.5); Sodium (POC) 140 mmol/L (135-148); Total CO2 (POC) 28 mmol/L (21-32)
== END 2023-09-25 18:40 | disposition home or self-care (01) ==
LOC: ER 16:37
PROVIDERS: Emergency Medicine
DX: H53.8 Other visual disturbances (principal); F20.0 Paranoid schizophrenia; I10 Essential (primary) hypertension; F17.200 Nicotine dependence, unspecified, uncomplicated; Z79.899 Other long term (current) drug therapy
CPT/HCPCS: 36415; 80047; 85014; 93005; 93010; 99284-25

== ENCOUNTER 2023-11-03 19:17 | Emergency (ER) | payer OTHER ==
[~2023-11-03] VITALS: Ht 167.6 cm; Wt 115.7 kg
[2023-11-03 19:22] VITALS: BP 180/111
== END 2023-11-03 20:00 | disposition home or self-care (01) ==
LOC: ER 19:17
DX: L91.8 Other hypertrophic disorders of the skin (principal); I10 Essential (primary) hypertension; F20.0 Paranoid schizophrenia; F17.200 Nicotine dependence, unspecified, uncomplicated; Z79.899 Other long term (current) drug therapy
CPT/HCPCS: 99283

== ENCOUNTER 2024-05-11 00:35 | Emergency (ER) | payer OTHER ==
[~2024-05-11] VITALS: Ht 167.6 cm; Wt 68.5 kg
[2024-05-11 01:02] VITALS: BP 200/110
== END 2024-05-11 04:52 | disposition home or self-care (01) ==
LOC: ER 00:35
DX: S93.402A Sprain of unspecified ligament of left ankle, initial encounter (principal); X50.1XXA Overexertion from prolonged static or awkward postures, initial encounter; R53.83 Other fatigue; I10 Essential (primary) hypertension; F20.0 Paranoid schizophrenia; F17.200 Nicotine dependence, unspecified, uncomplicated; Z79.899 Other long term (current) drug therapy
CPT/HCPCS: 99282

== ENCOUNTER 2024-05-23 14:04 | Emergency (ER) | payer OTHER ==
[~2024-05-23] VITALS: Ht 177.8 cm; Wt 81.7 kg
[2024-05-23 14:23] VITALS: BP 180/102
== END 2024-05-23 14:28 | disposition home or self-care (01) ==
LOC: ER 14:04
DX: Z00.8 Encounter for other general examination (principal); F17.200 Nicotine dependence, unspecified, uncomplicated; Z79.899 Other long term (current) drug therapy
CPT/HCPCS: 99282

== ENCOUNTER 2024-10-15 18:54 | Emergency (ER) | payer OTHER ==
[~2024-10-15] VITALS: Ht 167.6 cm; Wt 124.7 kg
[2024-10-15 19:11] VITALS: BP 127/95
[2024-10-15 20:17] LABS: BASOPHILS ABSOLUTE AUTO 0.14 K/mm3 (0.00-0.23); BASOPHILS PERCENT AUTO 1 % (0-2); EOSINOPHILS ABSOLUTE AUTO 0.21 K/mm3 (0.00-0.68); EOSINOPHILS PERCENT AUTO 2 % (0-6); Hematocrit 40.8 % (37.0-53.0); Hemoglobin 13.7 g/dL (13.5-17.5); IMMATURE GRAN ABSOLUTE AUTO 0.14 K/mm3 (0.00-0.10); IMMATURE GRAN PERCENT AUTO 1 % (0-1); LYMPHOCYTES ABSOLUTE AUTO 3.12 K/mm3 (0.84-5.20); LYMPHOCYTES PERCENT AUTO 31 % (21-46); MONOCYTES ABSOLUTE AUTO 1.17 K/mm3 (0.16-1.47); MONOCYTES PERCENT AUTO 11 % (4-13); Mean Corpuscular HGB 31.1 pg (26.0-34.0); Mean Corpuscular HGB Conc 33.6 g/dL (31.5-36.5); Mean Corpuscular Volume 93 fL (80-100); Mean Platelet Volume 12.6 fL (9.1-12.4); NEUTROPHILS ABSOLUTE AUTO 5.45 K/mm3 (1.96-9.15); NEUTROPHILS PERCENT AUTO 53 % (41-73); Platelet Count 156 K/mm3 (150-400); RDW Coefficient Variation 13.2 % (11.7-14.2); RDW Standard Deviation 45.3 fL (35.1-46.3); White Blood Cell Count 10.23 K/mm3 (4.00-11.30)
[2024-10-15 20:46] LABS: Albumin, Blood 3.7 g/dL (3.4-5.0); Bilirubin, Total 0.2 mg/dL (0.1-1.0); Bun/Creatinine Ratio 19.3 (12.0-20.0); Calcium, Blood 9.9 mg/dL (8.5-10.1); Creatinine, Blood 0.99 mg/dL (0.60-1.20); Globulin, Blood 3.7 g/dL (2.2-4.0); Potassium, Blood 3.6 mmol/L (3.5-5.5); Total Protein, Blood 7.4 g/dL (6.4-8.2)
[2024-10-15 20:54] LABS: Influenza A, PCR NEGATIVE (NEGATIVE); Influenza B, PCR NEGATIVE (NEGATIVE); Resp Syncytial Virus, PCR NEGATIVE (NEGATIVE); SARS-Cov-2 (COVID-19) PCR, MMC NEGATIVE (NEGATIVE)
== END 2024-10-15 22:27 | disposition home or self-care (01) ==
LOC: ER 18:54
PROVIDERS: Emergency Medicine
DX: R53.83 Other fatigue (principal); R73.9 Hyperglycemia, unspecified; Z79.899 Other long term (current) drug therapy
CPT/HCPCS: 0241U; 80053; 85025; 99283

== ENCOUNTER 2025-02-23 01:21 | Emergency (ER) | payer OTHER ==
[~2025-02-23] VITALS: Ht 167.6 cm; Wt 127.0 kg
[2025-02-23 04:32] VITALS: BP 159/111
== END 2025-02-23 04:33 | disposition home or self-care (01) ==
LOC: ER 01:21
DX: H59.311 Postprocedural hemorrhage of right eye and adnexa following an ophthalmic procedure (principal); I10 Essential (primary) hypertension; F17.200 Nicotine dependence, unspecified, uncomplicated; Z79.899 Other long term (current) drug therapy
CPT/HCPCS: 99283

== ENCOUNTER 2025-03-06 01:31 | Emergency (ER) | payer OTHER ==
[~2025-03-06] VITALS: Ht 167.6 cm; Wt 127.0 kg
[2025-03-06 03:17] VITALS: BP 184/124
== END 2025-03-06 03:20 | disposition home or self-care (01) ==
LOC: ER 01:31
DX: B35.6 Tinea cruris (principal); F20.9 Schizophrenia, unspecified; I10 Essential (primary) hypertension; F17.200 Nicotine dependence, unspecified, uncomplicated; Z79.899 Other long term (current) drug therapy
CPT/HCPCS: 99283

== ENCOUNTER 2025-03-08 05:24 | Observation (INO) | payer OTHER ==
[~2025-03-08] VITALS: Ht 170.2 cm; Wt 90.7 kg
[2025-03-08 06:39] LABS: BASOPHILS ABSOLUTE AUTO 0.08 K/mm3 (0.00-0.23); BASOPHILS PERCENT AUTO 1 % (0-2); EOSINOPHILS ABSOLUTE AUTO 0.04 K/mm3 (0.00-0.68); EOSINOPHILS PERCENT AUTO 0 % (0-6); Hematocrit 44.9 % (37.0-53.0); IMMATURE GRAN ABSOLUTE AUTO 0.05 K/mm3 (0.00-0.10); IMMATURE GRAN PERCENT AUTO 0 % (0-1); LYMPHOCYTES ABSOLUTE AUTO 2.28 K/mm3 (0.84-5.20); LYMPHOCYTES PERCENT AUTO 18 % (21-46); MONOCYTES ABSOLUTE AUTO 1.22 K/mm3 (0.16-1.47); MONOCYTES PERCENT AUTO 9 % (4-13); Mean Corpuscular HGB 30.7 pg (26.0-34.0); Mean Corpuscular HGB Conc 33.4 g/dL (31.5-36.5); Mean Corpuscular Volume 92 fL (80-100); NEUTROPHILS ABSOLUTE AUTO 9.34 K/mm3 (1.96-9.15); NEUTROPHILS PERCENT AUTO 72 % (41-73); Platelet Count 140 K/mm3 (150-400); RDW Coefficient Variation 13.9 % (11.7-14.2); RDW Standard Deviation 46.9 fL (35.1-46.3); Red Blood Cell Count 4.89 M/mm3 (4.30-5.90); White Blood Cell Count 13.01 K/mm3 (4.00-11.30)
[2025-03-08 06:41] LABS: Source, Urine Clean Catch
[2025-03-08 06:58] LABS: Appearance, Urine Clear (Clear); Bilirubin, Urine Neg (Neg); Blood, Urine 1+ (Neg); Color, Urine Yellow (P-Yellow); Glucose Qualitative, Urine Neg (Neg); Ketones, Urine 3+ (Neg); Leukocyte Esterase, Urine Neg (Neg); Nitrite, Urine Neg (Neg); Protein, Urine 2+ (Neg); Specific Gravity, Urine 1.015 (1.003-1.022); Urobilinogen, Urine NORM (Normal)
[2025-03-08 07:06] LABS: Ethanol (Alcohol), Blood, Med <3 mg/dL; Salicylate <1.7 mg/dL (2.8-20.0)
[2025-03-08 07:29] LABS: U Amphetamine Screen DETECTED; U Barbituate Screen Not Detected; U Benzodiazapine Screen Not Detected; U Buprenorphine Screen Not Detected; U Cannabinoids Screen Not Detected; U Cocaine Screen Not Detected; U Methadone Screen Not Detected; U Methamphetamine Screen DETECTED; U Opiates Screen Not Detected; U Oxycodone Screen Not Detected; U Phencyclidine Screen Not Detected
[2025-03-08 07:29] LABS: Alanine Aminotransfer (ALT/SGP 79 U/L (12-78); Albumin, Blood 4.1 g/dL (3.4-5.0); Albumin/Globulin Ratio 1.1 (0.8-1.8); Alk Phos 100 U/L (50-136); Anion Gap 13 mmol/L (3-11); Aspartate Aminotrans (AST/SGOT 69 U/L (12-37); Bilirubin, Total 0.8 mg/dL (0.1-1.0); Blood Urea Nitrogen 15 mg/dL (8-24); Bun/Creatinine Ratio 17.5 (12.0-20.0); CO2, Blood 21 mmol/L (21-32); Calcium, Blood 8.9 mg/dL (8.5-10.1); Chloride, Blood 104 mmol/L (98-108); Creatinine, Blood 0.86 mg/dL (0.60-1.20); Globulin, Blood 3.8 g/dL (2.2-4.0); Glomerular Filtration Rate 112 (60-); Glucose, Blood 118 mg/dL (70-99); Potassium, Blood 3.1 mmol/L (3.5-5.5); Sodium, Blood 135 mmol/L (136-145); Total Protein, Blood 7.9 g/dL (6.4-8.2)
[2025-03-08 07:30] LABS: Acetaminophen, Random <2.0 ug/mL (10.0-30.0)
[2025-03-08 07:36] LABS: Red Blood Cells, Urine 0-2 /hpf (0-2); Spermatozoa Mod /hpf; White Blood Cells, Urine 0-2 /hpf (0-5)
[2025-03-08 07:37] LABS: Squamous Epithelial Cells Rare /hpf (Few)
[2025-03-08 07:38] LABS: Bacteria Rare /hpf; Hyaline Casts 0-2 /lpf (0-2); Mucus Light (0-Heavy)
[2025-03-08] MEDS ORDERED: Haloperidol Lactate Inj. 5 MG/ML Injection IM ONE (07:45)
[2025-03-08] MEDS ORDERED: DiphenhydrAMINE HCl 50 MG/ML 1ML Vial IV ONE (07:45)
[2025-03-08] MEDS ORDERED: Potassium Chloride 20 MEQ/15 ML UDC PO ONE (07:55)
[2025-03-08] MEDS ORDERED: Acetaminophen 500 MG Tab PO ONE (09:35)
[2025-03-08] MEDS ORDERED: OLANZapine ODT 5 MG Tab MM ONE (09:35)
[2025-03-08 12:32] VITALS: BP 162/122
[2025-03-08] MEDS ORDERED: ASPERFLEX1 EACH TOP (21:55)
== END 2025-03-08 23:00 | disposition home or self-care (01) ==
LOC: ER 05:24 → EOR 05:25
PROVIDERS: ADMIT Student in an Organized Health Care Education/Training Program
DX: F15.929 Other stimulant use, unspecified with intoxication, unspecified (principal); F20.0 Paranoid schizophrenia; E87.6 Hypokalemia; F19.90 Other psychoactive substance use, unspecified, uncomplicated; F17.200 Nicotine dependence, unspecified, uncomplicated; Z79.899 Other long term (current) drug therapy
CPT/HCPCS: 80053; 80320; 81001; 85025; 93005; 93010; 99285-25; A9270; G0378; G0480; J1200; J1630

== ENCOUNTER 2025-03-08 21:20 | Emergency (ER) | payer OTHER ==
[~2025-03-08] VITALS: Ht 167.6 cm; Wt 122.5 kg
[2025-03-08 21:46] VITALS: BP 156/80
[2025-03-08] MEDS ORDERED: ASPERFLEX1 EACH TOP (21:55)
== END 2025-03-08 21:53 | disposition home or self-care (01) ==
LOC: ER 21:20
DX: M54.2 Cervicalgia (principal); Z79.899 Other long term (current) drug therapy
CPT/HCPCS: 99283

== ENCOUNTER 2025-03-10 18:06 | Emergency (ER) | payer OTHER ==
[~2025-03-10] VITALS: Ht 172.7 cm; Wt 122.5 kg
[~2025-03-10 18:06] MED LIST changes: +ASPERFLEX1 EACH TOP
[2025-03-10 18:43] VITALS: BP 181/135
[2025-03-10] MEDS ORDERED: Acetaminophen 500 MG Tab PO ONE (18:50)
== END 2025-03-10 19:02 | disposition home or self-care (01) ==
LOC: ER 18:06
DX: R51.9 Headache, unspecified (principal); F41.9 Anxiety disorder, unspecified; F17.200 Nicotine dependence, unspecified, uncomplicated; Z79.899 Other long term (current) drug therapy; W22.8XXA Striking against or struck by other objects, initial encounter
CPT/HCPCS: 99283; A9270

== ENCOUNTER 2025-03-11 02:52 | Emergency (ER) | payer OTHER ==
[~2025-03-11] VITALS: Ht 170.2 cm; Wt 111.1 kg
[2025-03-11 03:09] VITALS: BP 145/86
== END 2025-03-11 04:53 | disposition left against medical advice (07) ==
LOC: ER 02:52
DX: Z00.8 Encounter for other general examination (principal); Z53.21 Procedure and treatment not carried out due to patient leaving prior to being seen by health care provider

== ENCOUNTER 2025-03-22 00:07 | Emergency (ER) | payer OTHER ==
[~2025-03-22] VITALS: Ht 167.6 cm; Wt 122.5 kg
[2025-03-22] MEDS ORDERED: OLANZapine 5 MG Tab PO ONE (00:20)
[2025-03-22 00:46] VITALS: BP 136/85
[2025-03-22] MEDS ORDERED: NAPR500 PO (00:53)
== END 2025-03-22 01:07 | disposition home or self-care (01) ==
LOC: ER 00:07
DX: M25.511 Pain in right shoulder (principal); F15.90 Other stimulant use, unspecified, uncomplicated; F41.9 Anxiety disorder, unspecified; I10 Essential (primary) hypertension; F17.200 Nicotine dependence, unspecified, uncomplicated; Z79.899 Other long term (current) drug therapy
CPT/HCPCS: 73030; 93005; 93010; 99284-25; A9270

== ENCOUNTER 2025-08-14 | Emergency (ER) | payer OTHER ==
[~2025-08-14] VITALS: Ht 167.6 cm; Wt 104.3 kg
[~2025-08-14] MED LIST changes: +NAPR500 PO
[2025-08-14 00:14] VITALS: BP 198/141
[2025-08-14 00:22] LABS: Source, Urine Clean Catch
[2025-08-14 00:24] LABS: Bilirubin, Urine Neg (Neg); Glucose Qualitative, Urine Neg (Neg); Ketones, Urine Neg (Neg); Leukocyte Esterase, Urine Neg (Neg); Protein, Urine Neg (Neg); Specific Gravity, Urine 1.005 (1.003-1.022); Urobilinogen, Urine NORM (Normal)
[2025-08-14 00:25] LABS: BASOPHILS ABSOLUTE AUTO 0.06 K/mm3 (0.00-0.23); BASOPHILS PERCENT AUTO 1 % (0-2); EOSINOPHILS ABSOLUTE AUTO 0.07 K/mm3 (0.00-0.68); EOSINOPHILS PERCENT AUTO 1 % (0-6); Hematocrit 42.0 % (37.0-53.0); Hemoglobin 14.6 g/dL (13.5-17.5); IMMATURE GRAN ABSOLUTE AUTO 0.03 K/mm3 (0.00-0.10); IMMATURE GRAN PERCENT AUTO 0 % (0-1); LYMPHOCYTES ABSOLUTE AUTO 2.44 K/mm3 (0.84-5.20); LYMPHOCYTES PERCENT AUTO 25 % (21-46); MONOCYTES ABSOLUTE AUTO 1.14 K/mm3 (0.16-1.47); MONOCYTES PERCENT AUTO 12 % (4-13); Mean Corpuscular HGB Conc 34.8 g/dL (31.5-36.5); Mean Corpuscular Volume 91 fL (80-100); NEUTROPHILS ABSOLUTE AUTO 6.05 K/mm3 (1.96-9.15); NEUTROPHILS PERCENT AUTO 62 % (41-73); NRBC ABSOLUTE 0.00 K/mm3 (0.00-0.02); NRBC Auto 0.0 /100 WBC (0.0-0.2); Platelet Count 152 K/mm3 (150-400); RDW Coefficient Variation 13.7 % (11.7-14.2); RDW Standard Deviation 46.2 fL (35.1-46.3)
[2025-08-14 00:26] LABS: Color, Urine Pale Yellow (P-Yellow)
[2025-08-14 00:40] LABS: U Amphetamine Screen DETECTED; U Barbituate Screen Not Detected; U Benzodiazapine Screen Not Detected; U Buprenorphine Screen Not Detected; U Cannabinoids Screen Not Detected; U Cocaine Screen Not Detected; U Methadone Screen Not Detected; U Methamphetamine Screen DETECTED; U Opiates Screen Not Detected; U Oxycodone Screen Not Detected; U Phencyclidine Screen Not Detected
[2025-08-14 00:59] LABS: Ethanol (Alcohol), Blood, Med <3 mg/dL; Salicylate <1.7 mg/dL (2.8-20.0)
[2025-08-14 01:03] LABS: Alanine Aminotransfer (ALT/SGP 53 U/L (12-78); Albumin, Blood 4.1 g/dL (3.4-5.0); Albumin/Globulin Ratio 1.1 (0.8-1.8); Anion Gap 9 mmol/L (3-11); Aspartate Aminotrans (AST/SGOT 63 U/L (12-37); Bilirubin, Total 0.7 mg/dL (0.1-1.0); Blood Urea Nitrogen 9 mg/dL (8-24); CO2, Blood 26 mmol/L (21-32); Calcium, Blood 9.2 mg/dL (8.5-10.1); Chloride, Blood 101 mmol/L (98-108); Creatinine, Blood 0.84 mg/dL (0.60-1.20); Globulin, Blood 3.8 g/dL (2.2-4.0); Glucose, Blood 128 mg/dL (70-99); Potassium, Blood 3.4 mmol/L (3.5-5.5); Sodium, Blood 133 mmol/L (136-145); Total Protein, Blood 7.9 g/dL (6.4-8.2)
[2025-08-14 01:09] LABS: Acetaminophen, Random <2.0 ug/mL (10.0-30.0)
== END 2025-08-14 01:28 | disposition home or self-care (01) ==
LOC: ER
PROVIDERS: Emergency Medicine
DX: F15.10 Other stimulant abuse, uncomplicated (principal); I10 Essential (primary) hypertension; F17.200 Nicotine dependence, unspecified, uncomplicated; Z79.899 Other long term (current) drug therapy
CPT/HCPCS: 80053; 80320; 81003; 85025; 93005; 93010; 99284-25; A9270; G0480

== ENCOUNTER 2025-08-15 23:11 | Emergency (ER) | payer OTHER ==
[~2025-08-15] VITALS: Ht 170.2 cm; Wt 81.7 kg
[2025-08-15] MEDS ORDERED: LORazepam 2 MG/ML 1ML Injection IV ONE (23:30)
[2025-08-16 00:15] LABS: BASOPHILS ABSOLUTE AUTO 0.04 K/mm3 (0.00-0.23); BASOPHILS PERCENT AUTO 1 % (0-2); EOSINOPHILS ABSOLUTE AUTO 0.03 K/mm3 (0.00-0.68); EOSINOPHILS PERCENT AUTO 0 % (0-6); Hematocrit 41.3 % (37.0-53.0); Hemoglobin 13.8 g/dL (13.5-17.5); IMMATURE GRAN ABSOLUTE AUTO 0.03 K/mm3 (0.00-0.10); IMMATURE GRAN PERCENT AUTO 0 % (0-1); LYMPHOCYTES ABSOLUTE AUTO 1.78 K/mm3 (0.84-5.20); LYMPHOCYTES PERCENT AUTO 22 % (21-46); MONOCYTES ABSOLUTE AUTO 0.64 K/mm3 (0.16-1.47); MONOCYTES PERCENT AUTO 8 % (4-13); Mean Corpuscular HGB Conc 33.4 g/dL (31.5-36.5); Mean Corpuscular Volume 92 fL (80-100); NEUTROPHILS ABSOLUTE AUTO 5.47 K/mm3 (1.96-9.15); NEUTROPHILS PERCENT AUTO 68 % (41-73); NRBC ABSOLUTE 0.00 K/mm3 (0.00-0.02); NRBC Auto 0.0 /100 WBC (0.0-0.2); Platelet Count 135 K/mm3 (150-400); RDW Coefficient Variation 13.6 % (11.7-14.2); RDW Standard Deviation 46.5 fL (35.1-46.3)
[2025-08-16] MEDS ORDERED: LORazepam 2 MG/ML 1ML Injection ONE (00:33)
[2025-08-16] MEDS ORDERED: LORazepam 2 MG/ML 1ML Injection IV ONE (00:35)
[2025-08-16 00:47] LABS: Alanine Aminotransfer (ALT/SGP 56.0 U/L (12-78); Albumin, Blood 4.0 g/dL (3.4-5.0); Albumin/Globulin Ratio 1.2 (0.8-1.8); Anion Gap 11.0 mmol/L (3-11); Aspartate Aminotrans (AST/SGOT 29.0 U/L (12-37); Bilirubin, Total 0.5 mg/dL (0.1-1.0); Blood Urea Nitrogen 7.0 mg/dL (8-24); CO2, Blood 29.0 mmol/L (21-32); Calcium, Blood 9.1 mg/dL (8.5-10.1); Chloride, Blood 101.0 mmol/L (98-108); Creatinine, Blood 0.89 mg/dL (0.60-1.20); Globulin, Blood 3.3 g/dL (2.2-4.0); Glucose, Blood 95.0 mg/dL (70-99); Magnesium, Blood 2.1 mg/dL (1.6-2.4); Potassium, Blood 2.7 mmol/L (3.5-5.5); Sodium, Blood 138.0 mmol/L (136-145); Total Protein, Blood 7.3 g/dL (6.4-8.2)
[2025-08-16] MEDS ORDERED: POTA10T PO (04:39)
[2025-08-16 04:45] VITALS: BP 198/135
== END 2025-08-16 06:48 | disposition home or self-care (01) ==
LOC: ER 23:11
PROVIDERS: Student in an Organized Health Care Education/Training Program
DX: I10 Essential (primary) hypertension (principal); Z91.148 Patient's other noncompliance with medication regimen for other reason; F15.10 Other stimulant abuse, uncomplicated; Z79.899 Other long term (current) drug therapy; F17.200 Nicotine dependence, unspecified, uncomplicated
CPT/HCPCS: 80053; 83735; 84484; 85025; 93005; 93010; 96361; 96374; 96376; 99284-25; A9270; J2060; J7120

== ENCOUNTER 2025-08-17 21:45 | Emergency (ER) | payer OTHER ==
[~2025-08-17] VITALS: Ht 167.6 cm; Wt 108.9 kg
[~2025-08-17 21:45] MED LIST changes: +POTA10T PO
[2025-08-17 21:59] VITALS: BP 193/137
== END 2025-08-17 22:11 | disposition home or self-care (01) ==
LOC: ER 21:45
DX: I10 Essential (primary) hypertension (principal); Z91.148 Patient's other noncompliance with medication regimen for other reason; F19.90 Other psychoactive substance use, unspecified, uncomplicated; Z79.899 Other long term (current) drug therapy; F17.200 Nicotine dependence, unspecified, uncomplicated
CPT/HCPCS: 99283; A9270

== ENCOUNTER 2025-08-19 17:25 | Emergency (ER) | payer OTHER ==
[~2025-08-19] VITALS: Ht 167.6 cm; Wt 117.0 kg
[2025-08-19 17:37] VITALS: BP 208/123
[2025-08-19 18:18] LABS: BASOPHILS ABSOLUTE AUTO 0.07 K/mm3 (0.00-0.23); BASOPHILS PERCENT AUTO 1 % (0-2); EOSINOPHILS ABSOLUTE AUTO 0.06 K/mm3 (0.00-0.68); EOSINOPHILS PERCENT AUTO 1 % (0-6); Hematocrit 40.0 % (37.0-53.0); Hemoglobin 13.6 g/dL (13.5-17.5); IMMATURE GRAN ABSOLUTE AUTO 0.05 K/mm3 (0.00-0.10); IMMATURE GRAN PERCENT AUTO 1 % (0-1); LYMPHOCYTES ABSOLUTE AUTO 1.88 K/mm3 (0.84-5.20); LYMPHOCYTES PERCENT AUTO 19 % (21-46); MONOCYTES ABSOLUTE AUTO 0.83 K/mm3 (0.16-1.47); MONOCYTES PERCENT AUTO 8 % (4-13); Mean Corpuscular HGB Conc 34.0 g/dL (31.5-36.5); Mean Corpuscular Volume 93 fL (80-100); NEUTROPHILS ABSOLUTE AUTO 7.11 K/mm3 (1.96-9.15); NEUTROPHILS PERCENT AUTO 71 % (41-73); NRBC ABSOLUTE 0.00 K/mm3 (0.00-0.02); NRBC Auto 0.0 /100 WBC (0.0-0.2); Platelet Count 146 K/mm3 (150-400); RDW Coefficient Variation 13.6 % (11.7-14.2); RDW Standard Deviation 45.9 fL (35.1-46.3)
[2025-08-19 18:52] LABS: Alanine Aminotransfer (ALT/SGP 54.0 U/L (12-78); Albumin, Blood 4.0 g/dL (3.4-5.0); Albumin/Globulin Ratio 1.2 (0.8-1.8); Anion Gap 8.0 mmol/L (3-11); Aspartate Aminotrans (AST/SGOT 23.0 U/L (12-37); Bilirubin, Total 0.3 mg/dL (0.1-1.0); Blood Urea Nitrogen 16.0 mg/dL (8-24); CO2, Blood 26.0 mmol/L (21-32); Calcium, Blood 8.8 mg/dL (8.5-10.1); Chloride, Blood 105.0 mmol/L (98-108); Creatinine, Blood 0.9 mg/dL (0.60-1.20); Globulin, Blood 3.4 g/dL (2.2-4.0); Glucose, Blood 115.0 mg/dL (70-99); Potassium, Blood 3.2 mmol/L (3.5-5.5); Sodium, Blood 136.0 mmol/L (136-145); Total Protein, Blood 7.4 g/dL (6.4-8.2)
== END 2025-08-19 20:32 | disposition home or self-care (01) ==
LOC: ER 17:25
PROVIDERS: Student in an Organized Health Care Education/Training Program
DX: Z00.00 Encounter for general adult medical examination without abnormal findings (principal); I10 Essential (primary) hypertension; F17.200 Nicotine dependence, unspecified, uncomplicated; Z79.899 Other long term (current) drug therapy
CPT/HCPCS: 36415; 80053; 83690; 85025

== ENCOUNTER 2025-10-01 18:33 | Emergency (ER) | payer OTHER ==
[~2025-10-01] VITALS: Ht 167.6 cm; Wt 112.0 kg
[2025-10-01 18:40] VITALS: BP 157/118
[2025-10-01 19:57] LABS: BASOPHILS ABSOLUTE AUTO 0.07 K/mm3 (0.00-0.23); BASOPHILS PERCENT AUTO 1 % (0-2); EOSINOPHILS ABSOLUTE AUTO 0.12 K/mm3 (0.00-0.68); EOSINOPHILS PERCENT AUTO 2 % (0-6); Hematocrit 41.7 % (37.0-53.0); Hemoglobin 14.0 g/dL (13.5-17.5); IMMATURE GRAN ABSOLUTE AUTO 0.02 K/mm3 (0.00-0.10); IMMATURE GRAN PERCENT AUTO 0 % (0-1); LYMPHOCYTES ABSOLUTE AUTO 2.05 K/mm3 (0.84-5.20); LYMPHOCYTES PERCENT AUTO 28 % (21-46); MONOCYTES ABSOLUTE AUTO 0.97 K/mm3 (0.16-1.47); MONOCYTES PERCENT AUTO 13 % (4-13); Mean Corpuscular HGB Conc 33.6 g/dL (31.5-36.5); Mean Corpuscular Volume 94 fL (80-100); NEUTROPHILS ABSOLUTE AUTO 4.08 K/mm3 (1.96-9.15); NEUTROPHILS PERCENT AUTO 56 % (41-73); NRBC ABSOLUTE 0.00 K/mm3 (0.00-0.02); NRBC Auto 0.0 /100 WBC (0.0-0.2); Platelet Count 138 K/mm3 (150-400); RDW Coefficient Variation 13.7 % (11.7-14.2); RDW Standard Deviation 46.8 fL (35.1-46.3)
[2025-10-01 20:05] LABS: Alanine Aminotransfer (ALT/SGP 42.0 U/L (12-78); Albumin, Blood 4.2 g/dL (3.4-5.0); Albumin/Globulin Ratio 1.3 (0.8-1.8); Anion Gap 10.0 mmol/L (3-11); Aspartate Aminotrans (AST/SGOT 34.0 U/L (12-37); Bilirubin, Total 0.3 mg/dL (0.1-1.0); Blood Urea Nitrogen 8.0 mg/dL (8-24); CO2, Blood 28.0 mmol/L (21-32); Calcium, Blood 9.5 mg/dL (8.5-10.1); Chloride, Blood 101.0 mmol/L (98-108); Creatinine, Blood 0.85 mg/dL (0.60-1.20); Globulin, Blood 3.3 g/dL (2.2-4.0); Glucose, Blood 89.0 mg/dL (70-99); Potassium, Blood 3.2 mmol/L (3.5-5.5); Sodium, Blood 136.0 mmol/L (136-145); Total Protein, Blood 7.5 g/dL (6.4-8.2)
[2025-10-01] MEDS ORDERED: POTCHL20ER PO (20:18)
== END 2025-10-01 20:25 | disposition home or self-care (01) ==
LOC: ER 18:33
PROVIDERS: Emergency Medicine
DX: E87.6 Hypokalemia (principal); Z59.89 Other problems related to housing and economic circumstances
CPT/HCPCS: 36415; 80053; 85025; 99284; A9270

== ENCOUNTER 2025-10-24 21:20 | Emergency (ER) | payer OTHER ==
[~2025-10-24] VITALS: Ht 167.6 cm; Wt 83.9 kg
[2025-10-24 21:39] VITALS: BP 164/97
[2025-10-24] MEDS ORDERED: Ketorolac Tromethamine 30mg Vial IM ONE (23:45)
== END 2025-10-24 23:00 | disposition home or self-care (01) ==
LOC: ER 21:20
DX: R51.9 Headache, unspecified (principal); E03.9 Hypothyroidism, unspecified; I10 Essential (primary) hypertension; F17.200 Nicotine dependence, unspecified, uncomplicated; Z79.899 Other long term (current) drug therapy
CPT/HCPCS: 99283; J1885

== ENCOUNTER 2025-10-30 16:25 | Emergency (ER) | payer OTHER ==
[~2025-10-30] VITALS: Ht 172.7 cm; Wt 97.5 kg
[2025-10-30] MEDS ORDERED: Atropine/Scopalam/Hyoscam/PB 5 ML UDC PO ONE (16:40)
[2025-10-30 17:17] VITALS: BP 179/103
== END 2025-10-30 18:18 | disposition home or self-care (01) ==
LOC: ER 16:25
DX: T50.901A Poisoning by unspecified drugs, medicaments and biological substances, accidental (unintentional), initial encounter (principal); R45.1 Restlessness and agitation; I10 Essential (primary) hypertension; F17.200 Nicotine dependence, unspecified, uncomplicated; F20.9 Schizophrenia, unspecified; Z79.899 Other long term (current) drug therapy
CPT/HCPCS: 99284-25; A9270